=== PATIENT | male | born 1960 | race Caucasian/White ===

== ENCOUNTER 2020-10-16 08:34 | Outpatient (CLI) | payer OTHER, SELFPAY ==
--- NOTE | 2020-10-16 08:42 | ECG_ITS ---
Measurements Intervals [place] Rate: 58 P: 20 [place]: 201 QRS: -35 QRSD: 122 T: -4 QT: 439 QTc: 434 Interpretive Statements SINUS BRADYCARDIA LEFT AXIS DEVIATION BORDERLINE AV CONDUCTION DELAY INTRAVENTRICULAR CONDUCTION DELAY DELAYED PRECORDIAL R/S TRANSITION VOLTAGE CRITERIA FOR LVH BORDERLINE T WAVE ABNORMALITY- ANTERIOR LEADS BASELINE ARTIFACT- I, II, AVR BORDERLINE ECG Electronically Signed On 10-16-2020 12:54:22 CDT by Gomez Robison D.O.
== END 2020-10-16 08:35 | disposition home or self-care (01) ==
LOC: ANHSURGERY 08:36
PROVIDERS: PCP Family Medicine; Visit Provider Orthopaedic Surgery
DX: Z01.810 Encounter for preprocedural cardiovascular examination (principal); I10 Essential (primary) hypertension
CPT/HCPCS: 93005

== ENCOUNTER 2020-10-21 01:35 | Day surgery (SDC) | payer OTHER, SELFPAY ==
[2020-10-15 15:14] VITALS: BMI 37.6
[2020-10-21] VITALS (8 sets, daily range): BP systolic 124–158; BP diastolic 82–96; PULSE 63–87; RESP 16–18; TEMP 36.1–36.6; O2SAT 92–99
--- NOTE | 2020-10-21 07:16 | WPDHPUPDATE1 ---
History and Physical Update Update Date/Time: 10/21/20 07:16 History and Physical has been reviewed, including an updated exam of the patient. There are NO changes in the patient's condition. Risks, benefits, and alternatives have been discussed and questions answered. Patient agrees to proceed with procedure.
--- NOTE | 2020-10-21 08:18 | WPDANESEPPF ---
Anes - Initial Pre Proc Eval Procedure: Operation Date: 10/21/20 12:30 Proposed Procedures p Right Knee Arthroscopy, Proceed As Indicated - Jorge Hussein MD Date/Time: 10/21/20 08:18 Surgeon: Jorge Hussein MD Pre Op Diagnosis: medial meniscus tear right Patient Data Age: 59 Gender: M Height: 1.8 m Weight: 122.47 kg Allergies Allergy/AdvReac Type Severity Reaction Status Date / Time shellfish derived Allergy Intermediate unknown Verified 10/21/20 10:33 tetracycline Allergy Intermediate Pruritic Verified 10/21/20 10:33 rash house dust Allergy Mild itching Verified 10/21/20 10:33 Home Medications Medication Instructions Recorded Confirmed Type amlodipine 5 mg-benazepril 20 mg 1 cap PO DAILY #90 cap 06/22/20 10/21/20 Rx capsule nebivolol 10 mg tablet 10 mg PO DAILY #90 tablet 06/22/20 10/21/20 Rx ergocalciferol (vitamin D2) 1,250 mcg PO 2XW 10/15/20 10/21/20 History Patient hx anesthesia problems: none Family hx anesthesia problems: none PMFSH Past Medical History Medical History (Updated 10/20/20 @ 12:55 by Jamison Schwarz DO) Benign essential HTN DJD (degenerative joint disease) of knee Normal colonoscopy 02/25/2020 Gary Robledo M.D. PONV (postoperative nausea and vomiting) Right knee pain URI, acute Weight gain Surgical History Surgical History History of nasal surgery History of rotator cuff surgery S/P medial meniscectomy of right knee Family History Family History Father Malignant neoplasm of prostate Hypertension Sibling Family history of multiple sclerosis Hypertension Family history of gastrointestinal disorder Mother Family history of malignant neoplasm of brain Other Brain cancer Social History Social History Smoking status: Never smoker Second hand tobacco smoke exposure: No Alcohol intake: current Drinks per week: 4 Substance use: never Living arrangements: with family Gender identity (if verbalized by the patient): Male Anes - Eval Final PreProcedure Day of Procedure 10/21/20 08:18 Patient weight: obese Heart: regular rate and rhythm Lungs: clear to auscultation and normal air movement Airway: Mallampati scale class III Neurological: alert and oriented Last oral intake: >/= 8 hours ASA classification: III Emergent: no Anesthetic plan: proceed Anesthesia type and monitoring: general LMA and standard monitoring Informed Consent: The patient's anesthetic plan and its attendant risks and benefits were discussed with the patient/family/POA. Questions were solicited and answers provided to the satisfaction of the patient/family/POA.
[2020-10-21] MEDS: ACETAMINOPHEN 500 MG TABLET 1000 MG PO (11:03)
[2020-10-21] MEDS: LACTATED RINGERS 1,000 ML 30 ML IV CONT ×2 (11:03→13:35)
[2020-10-21] MEDS: CELECOXIB 200 MG CAPSULE PO (11:03)
--- NOTE | 2020-10-21 11:24 | SUR.PREOP ---
patient states they have used crutches before and denies need for further teaching. quickly reviewed crutch training instructions and attached materials to discharge.
[2020-10-21] MEDS: FAMOTIDINE 20 MG/2 ML VIAL IV PUSH (12:10)
[2020-10-21] MEDS: SCOPOLAMINE 1.5 MG PATCH TRANSDERM (12:11)
[2020-10-21] MEDS: ceFAZolin 3 GM/D5W 100 ML 100 ML IVPB (12:27)
[2020-10-21] MEDS: BUPIVACAINE HCL 0.5% PF 30 ML VIAL INFILTRATE (13:09)
--- NOTE | 2020-10-21 13:35 | W.PM.PROC2 ---
Procedure Note - Detailed Date of Procedure 10/21/20 Pre-op Diagnosis medial meniscus tear right Post-op Diagnosis same Procedure Performed RIGHT KNEE SCOPE Surgeon Jorge Hussein MD Anesthesia general Description of Procedure PATIENT WAS TAKEN TO THE OR. RIGHT LEG WAS PREPPED AND DRAPED STERILE. TROCARS WERE PLACED IN THE USUAL FASHION. CAMERA WAS INTRODUCED. THERE WAS CHONDROMALACIA TO THE PATELLA FEMORAL JOINT. THERE WAS A LOT OF SYNOVITIS IN ALL COMPARTMENTS. THE MEDIAL COMPARTMENT SHOWED CHONDROMALACIA TO THE MEDIAL FEMORAL CONDYLE. A SHAVER WAS USED TO PREFORM A CHONDROPLASTY. THERE WAS A COMPLEX MEDIAL MENISCUS TEAR. THE TEAR WAS RESECTED WITH A BITER AND A SHAVER DOWN TO A SMOOTH BASE. ABOUT 30% OF THE RECURRENT MENISCUS TEAR WAS REMOVED. THE ACL WAS INTACT. THE LATERAL MENISCUS WAS NOT TORN THE LAT COMPARTMENT HAD GRADE 2 CHONDROMALACIA AT THE LATERAL PLATEAU. CHONDROPLASTY WAS PREFORMED. A SYNOVECTOMY WAS PREFORMED WELL. THE PATELLO FEMORAL JOINT UNDERWENT CHONDROPLASTY. THERE WAS GRADE 2 CHONDROMALACIA IN MOST OF THE TROCHLEA AND PART OF THE PATELLA. SYNOVECTOMY WAS PREFORMED IN THE SUPERIOR MEDIAL COMPARTMENT. THE WOUNDS WERE APPROXIMATED WITH 4.0 NYLON. STERILE DRESSING WAS APPLIED. PATIENT WAS EXTUBATED. Estimated Blood Loss 5 Complications No immediate complications Condition stable Disposition PACU
[2020-10-21] MEDS: fentaNYL CITRATE INJ (*CRX) 100 MCG/2 ML VIAL 25 MCG IV PUSH ×4 (13:59→14:41)
== END 2020-10-21 15:45 | disposition home or self-care (01) ==
PROVIDERS: PCP Family Medicine; Visit Provider Orthopaedic Surgery
PROC: (CPT 29870; principal; 2020-10-21 12:30)
DX: M23.331 Other meniscus derangements, other medial meniscus, right knee (principal); M65.861 Other synovitis and tenosynovitis, right lower leg; M94.261 Chondromalacia, right knee; I10 Essential (primary) hypertension; E66.9 Obesity, unspecified; Z68.37 Body mass index [BMI] 37.0-37.9, adult
CPT/HCPCS: 29881; 93005; A9270; J0690; J1100; J1170; J2250; J2405; J2704; J3010; J7120

== ENCOUNTER 2020-11-18 07:55 | Outpatient (CLI) | payer OTHER, SELFPAY ==
[2020-11-18 09:48] LABS: Hematocrit 45.3 % (42.0-52.0); Hemoglobin 15.1 g/dL (14.0-18.0); Mean Corpuscular HGB Conc 33.3 g/dl (32-36); Mean Corpuscular Hemoglobin 31.1 pg (26-34); Mean Corpuscular Volume 93.4 fl (80-100); Mean Platelet Volume 11.5 fl (7.4-10.4); Platelet Count Result 179 k/mm3 (150-375); Red Blood Count 4.85 M/mm3 (4.6-6.20); Red Cell Distribution Width 12.1 % (11.5-14.5); White Blood Count 6.3 K/mm3 (4.5-10.0)
[2020-11-18 09:50] LABS: Add Urine Microscopic? NO; Appearance Urine Clear (Clear); Bilirubin Urine Negative (Negative); Blood Urine Negative (Negative); Color Urine Yellow (Yellow); Glucose Urine UA Negative (Negative); Ketones Urine Negative (Negative); Leukocyte Esterase Ur Negative LEU/UL (Negative); Nitrate Urine Negative (Negative); Protein Urine Negative (Negative); Specific Grav Ur 1.016 (1.001-1.035); Urobilinogen Urine Negative mg/dL (<2.0)
[2020-11-18 09:52] LABS: INR 0.9
[2020-11-18 09:53] LABS: Partial Thromboplastin Time 28.6 SECONDS (22.3-36.8)
[2020-11-18 09:57] LABS: Albumin Level 4.4 g/dL (3.5-5.1); Anion Gap 7 mmol/L (8-16); Blood Urea Nitrogen 13 mg/dL (9-20); Calcium 9.3 mg/dL (8.4-10.2); Carbon Dioxide 32 mmol/L (22-30); Chloride 102 mmol/L (98-107); Estimated Glomerular Filt Rate > 60; Glucose 104 mg/dL (65-110); Potassium 3.5 mmol/L (3.4-5.0); Sodium 141 mmol/L (137-145)
[2020-11-18 09:59] LABS: Hemoglobin A1C 5.3 % (<5.7)
[2020-11-18 10:06] LABS: Urine Cotinine NEGATIVE
== END 2020-11-18 07:56 | disposition home or self-care (01) ==
LOC: ANHSURGERY 07:55
PROVIDERS: PCP Family Medicine; Visit Provider Orthopaedic Surgery
DX: M17.12 Unilateral primary osteoarthritis, left knee (principal); Z01.818 Encounter for other preprocedural examination
CPT/HCPCS: 80048; 80307; 81003; 82040; 83036; 85027; 85610; 85730; 87081

== ENCOUNTER 2020-12-09 01:23 | Day surgery (SDC) | payer OTHER, SELFPAY ==
[2020-11-18 08:09] VITALS: BP 140/91; PULSE 56; RESP 18; TEMP 36.8; O2SAT 97; BMI 38.8
[2020-12-09] VITALS (17 sets, daily range): BP systolic 124–169; BP diastolic 69–91; PULSE 57–75; RESP 12–18; TEMP 36.1–36.6; O2SAT 91–100; BMI 38.7
--- NOTE | ~2020-12-09 | XR_ITS ---
EXAMINATION: XR knee LT 2V DATE: 12/09/2020 14:16 INDICATION: Left knee arthroplasty. Postop. TECHNIQUE: 2 views of left knee were obtained. COMPARISON: Left knee radiographs 11/30/2020 FINDINGS: There is a total left knee arthroplasty in near-anatomic alignment without patellar resurfa cing. No fracture. There is gas in the knee joint and soft tissues, consistent with recent surgery. A nterior skin arpita are noted. IMPRESSION: 1. Total left knee arthroplasty in near-anatomic alignment. Reviewed, dictated and finalized at location A.
--- NOTE | 2020-12-09 07:19 | WPDHPUPDATE1 ---
History and Physical Update Update Date/Time: 12/09/20 07:19 History and Physical has been reviewed, including an updated exam of the patient. There are NO changes in the patient's condition. Risks, benefits, and alternatives have been discussed and questions answered. Patient agrees to proceed with procedure.
[2020-12-09] MEDS: ACETAMINOPHEN 500 MG TABLET 1000 MG PO (09:19)
[2020-12-09] MEDS: LACTATED RINGERS 1,000 ML 30 ML IV CONT ×2 (09:37→14:05)
[2020-12-09] MEDS: TRANEXAMIC ACID 1,000MG/ISO100 1,000 MG/100 ML BAG 200 MG IVPB (09:38)
--- NOTE | 2020-12-09 10:28 | WPDANESEPPF ---
Anes - Initial Pre Proc Eval Procedure: Operation Date: 12/09/20 11:00 Proposed Procedures p Left Total Knee Arthroplasty - Jorge Hussein MD Date/Time: 12/09/20 10:28 Surgeon: Jorge Hussein MD Pre Op Diagnosis: Left knee djd Patient Data Age: 60 Gender: M Height: 1.78 m Weight: 122.5 kg Last Vital Signs Temp 36.6 C 12/09/20 08:58 Pulse 57 L 12/09/20 08:58 Resp 18 12/09/20 08:58 BP 142/82 H 12/09/20 08:58 Pulse Ox 98 12/09/20 08:58 Allergies Allergy/AdvReac Type Severity Reaction Status Date / Time tetracycline Allergy Intermediate Pruritic Verified 12/09/20 09:04 rash house dust Allergy Mild itching Verified 12/09/20 09:04 Home Medications Medication Instructions Recorded Confirmed Type ergocalciferol (vitamin D2) 1,250 mcg PO 2XW 10/15/20 12/09/20 History Bystolic 10 mg PO HS 11/18/20 12/09/20 History amlodipine-benazepril 1 cap PO HS 11/18/20 12/09/20 History ascorbic acid (vitamin C) 500 mg PO DAILY 11/18/20 12/09/20 History cyanocobalamin (vitamin B-12) 500 mcg PO DAILY 11/18/20 12/09/20 History celecoxib 200 mg capsule 200 mg PO BID #30 cap 12/08/20 12/09/20 Rx diazepam 5 mg tablet 5 mg PO BID PRN #30 tablet 12/08/20 12/09/20 Rx oxycodone-acetaminophen 7.5 mg-325 1 - 2 tablet PO Q6H PRN #60 tablet 12/08/20 Rx mg tablet Patient hx anesthesia problems: none Family hx anesthesia problems: none PMFSH Past Medical History Medical History Benign essential HTN DJD (degenerative joint disease) of knee Normal colonoscopy 02/25/2020 Gary Robledo M.D. PONV (postoperative nausea and vomiting) Right knee pain URI, acute Weight gain Surgical History Surgical History History of nasal surgery History of rotator cuff surgery S/P medial meniscectomy of right knee Family History Family History Father Malignant neoplasm of prostate Hypertension Sibling Family history of multiple sclerosis Hypertension Family history of gastrointestinal disorder Mother Family history of malignant neoplasm of brain Other Brain cancer Social History Social History Second hand tobacco smoke exposure: No Alcohol intake: current Drinks per week: 4 Substance use: never Living arrangements: with family Gender identity (if verbalized by the patient): Male Spiritual care concerns: No Anes - Eval Final PreProcedure Day of Procedure 12/09/20 10:28 Patient weight: obese Heart: regular rate and rhythm Lungs: clear to auscultation and normal air movement Airway: Mallampati scale class III Neurological: alert and oriented Last oral intake: >/= 8 hours ASA classification: III Emergent: no Anesthetic plan: proceed Anesthesia type and monitoring: general LMA and standard monitoring Informed Consent: The patient's anesthetic plan and its attendant risks and benefits were discussed with the patient/family/POA. Questions were solicited and answers provided to the satisfaction of the patient/family/POA.
[2020-12-09] MEDS: FAMOTIDINE 20 MG/2 ML VIAL IV PUSH (10:30)
[2020-12-09] MEDS: SCOPOLAMINE 1.5 MG PATCH TRANSDERM (10:30)
--- NOTE | 2020-12-09 11:19 | WPDANESPNB ---
Anes - Peripheral Nerve Block Date/Time: 12/09/20 11:19 I have discussed with the patient/family/POA the placement of a peripheral nerve block for post-operative pain management, including associated risks, benefits, complications, and side effects. Alternative methods of post-operative analgesia were detailed. Questions were solicited and answers provided to the satisfaction of the patient/family/POA. Time-Out: A pre-procedural Time-Out was completed immediately before starting the procedure and confirmed: Patient Identification, Site, Procedure, Patient Position and the Availability of Requisite Equipment. Clinical Indications: Acute post-operative pain management requested by the operative surgeon. Nerve Block Insertion Note Anes-nerve block: adductor canal left Patient position: supine Skin prep: chlorhexidine Needle: 22 gauge, stimulating, insulated echogenic needle. Needle length: 80 mm Technique: ultrasound Injectate: bupivacaine 0.5% with epi 5 mcg/ml (30cc - no epi) Observations: tolerated well Complications: none Procedure start time:: 1113 Procedure end time:: 111
[2020-12-09] MEDS: ceFAZolin 3 GM/D5W 100 ML 100 ML IVPB (11:41)
[2020-12-09] MEDS: TRANEXAMIC ACID 1,000 MG/10 ML AMPUL 30 MG IV PUSH (13:12)
[2020-12-09] MEDS: BUPIVACAINE HCL 0.5% PF 30 ML VIAL 5 ML INFILTRATE (13:33)
[2020-12-09] MEDS: methylPREDNISolone ACETATE 80 MG/ML VIAL IM (13:33)
[2020-12-09] MEDS: fentaNYL CITRATE INJ (*CRX) 100 MCG/2 ML VIAL 25 MCG IV PUSH ×7 (14:20→15:18)
--- NOTE | 2020-12-09 14:42 | W.PM.PROC2 ---
Procedure Note - Detailed Date of Procedure 12/09/20 Pre-op Diagnosis Left knee djd Post-op Diagnosis same Procedure Performed L TKA Surgeon Jorge Hussein MD Anesthesia general Description of Procedure THE LEFT KNEE WAS PREPPED AND DRAPED IN THE STERILE FASHION. A MIDLINE SKIN INCISION WAS MADE. A MEDIAL PARAPATELLAR ARTHROTOMY WAS MADE. THE PATELLA WAS EVERTED. THERE WAS TRICOMPARTMENT DJD. THERE WAS MINIMAL PATELLA DJD. AN INTRAMEDULLARY AMY WAS PLACED IN THE FEMUR. A DISTAL FEMORAL CUT WAS MADE IN 5 DEGREES OF VALGUS REMOVING APPROXIMATELY 9 MM OF BONE FROM THE DISTAL FEMUR. THE FEMUR WAS SIZED TO 70. A 70 FEMORAL CUTTING BLOCK WAS PLACED IN 3 DEGREES OF EXTERNAL ROTATION AND IN ALIGNMENT WITH SIERRA'S LINE AND THE TRANSEPICONDYLAR AXIS. ANTERIOR POSTERIOR AND CHAMFER CUTS WERE MADE. THE CUTS WERE EXCELLENT. NEXT AN INTRAMEDULLARY CUTTING GUIDE WAS PLACED IN THE TIBIA. A TRANS TIBIAL CUT WAS MADE ALONG THE LONG AXIS OF THE TIBIA. APPROXIMATELY 10 MM OF BONE WAS REMOVED FROM THE HIGH SIDE OF THE TIBIA. THE TIBIA WAS THEN PLANED TO A SMOOTH SURFACE. POSTERIOR FEMORAL OSTEOPHYTES WERE REMOVED FROM THE FEMORAL CONDYLES. A 83 TIBIAL TRIAL WAS PLACED IN ALIGNMENT WITH THE 1/3 MEDIAL ASPECT OF THE TIBIAL TUBERCLE. THEN A 70 FEMORAL TRIAL COMPONENT WAS PLACED. BOTH HAD EXCELLENT FITS. EVENTUALLY A 12 MM CR POLYETHYLENE TRIAL COMPONENT WAS PLACED. THE KNEE WAS TAKEN THROUGH A RANGE OF MOTION. THE KNEE CAME OUT TO FULL EXTENSION. THERE WAS NO ABNORMAL TILT TO THE PATELLA. THERE WAS GOOD A/P AND VARUS/VALGUS STABILITY. THERE WAS NO EXCESSIVE ROLL BACK WITH FLEXION. THE TRIAL COMPONENTS WERE REMOVED. THEN A 70 FEMORAL COMPONENT AND 83 TIBIAL COMPONENT WITH A 12 CR POLYETHYLENE COMPONENT WERE PRESS FIT INTO PLACE. THE KNEE WAS TAKEN THROUGH A ROM AGAIN AND FOUND TO BE STABLE WITH NO PATELLA TILT NO EXCESSIVE ROLL BACK WITH FLEXION AND GOOD STABILITY WITH COMPLETE AND FULL EXTENSION. THE KNEE WAS IRRIGATED WITH STERILE BETADINE AND WATER FOR ABOUT 3 MINUTES. THE BLEEDERS WERE CAUTERIZED. THE ARTHROTOMY WAS REPAIRED WITH NUMBER 1 VICRYL. THE SUB CUTANEOUS LAYER WITH 2-0 VICRYL AND THE SKIN WITH UDAY. THE WOUND WAS WASHED AND A STERILE DRESSING WAS APPLIED. PATIENT WAS EXTUBATED. Estimated Blood Loss -150.0 Pathology none sent Complications No immediate complications Condition stable Disposition PACU
[2020-12-09] MEDS: oxyCODONE HCL (*CRX) 5 MG TAB IR PO (17:13)
--- NOTE | 2020-12-09 17:26 | SUR.PHASEII ---
Physical therapy in room seeing patient now.
[2020-12-09] MEDS: ONDANSETRON INJ 4 MG/2 ML VIAL IV PUSH (17:36)
== END 2020-12-09 18:55 | disposition home or self-care (01) ==
PROVIDERS: PCP Family Medicine; Visit Provider Orthopaedic Surgery
PROC: (CPT 27447; principal; 2020-12-09 11:00)
DX: M17.12 Unilateral primary osteoarthritis, left knee (principal); G89.18 Other acute postprocedural pain; I10 Essential (primary) hypertension; E66.9 Obesity, unspecified; Z68.38 Body mass index [BMI] 38.0-38.9, adult; Z88.1 Allergy status to other antibiotic agents; Z79.899 Other long term (current) drug therapy
CPT/HCPCS: 27447; 64447; 36415; 73560; 80048; 80307; 81003; 82040; 83036; 85027; 85610; 85730; 86850; 86900; 86901; 87081; 97161; A9270; C1713; C1776; J0131; J0171; J0690; J1040; J1100; J1170; J1885; J2250; J2270; J2405; J2704; J2795; J3010; J7120

== ENCOUNTER 2024-05-14 12:35 | Outpatient (CLI) | payer OTHER, SELFPAY ==
--- NOTE | ~2024-05-14 | MR_ITS ---
MRI of the lumbar spine Clinical History: Pain Technique: Axial T2-weighted images, and sagittal T1-weighted, T2-weighted, and too fat-sat images we re acquired. Findings: There is no fracture or subluxation of the lumbar spine. Vertebral bodies maintain normal h eight and alignment. No suspicious bone marrow signal abnormality seen. At L1-L2, L2-L3, L3-L4, there is no significant disc bulge or herniation. There is mild to moderate f acet hypertrophy at these levels. No spinal canal stenosis or neural foraminal narrowing at these lev els. At L4-L5, there is mild disc desiccation and narrowing, with minimal disc bulge. There is moderate fa cet arthropathy. No central canal stenosis. There is minimal bilateral neural foraminal narrowing. At L5-S1, there is mild disc desiccation. No disc bulge or herniation. There is mild facet arthropath y. No central canal stenosis or neural foraminal narrowing. Paravertebral soft tissues are unremarkable. Impression: Mild degenerative spondylosis overall, as above. Reviewed, dictated and finalized at location . T LITERACY INSTRUCTOR Impression: Mild degenerative spondylosis overall, as above.
--- NOTE | ~2024-05-14 | MR_ITS ---
EXAMINATION: MR thoracic spine wo con DATE: 05/14/2024 13:13 INDICATION: Mid back pain TECHNIQUE: Magnetic resonance imaging (MRI) of the thoracic spine was performed without intravenous c ontrast. Sagittal localizer T1-weighted FSE of the cervicothoracic spine was obtained. Thoracic spine sequences included sagittal T2-weighted FSE, sagittal T1-weighted SE, Sagittal T2-weighted FS FSE, a nd axial T2-weighted FSE. COMPARISON: None FINDINGS: Alignment is normal.Mild likely physiologic anterior wedging at T11 and T12. Remaining vertebral body heights are normal. There is diffuse decreased T1 and increased T2 signal throughout the [id number] body. There is fibrofatty and fibrovascular degenerative endplate change at the anterior inferior en dplate of L1. Marrow signal is otherwise normal. Mild disc desiccation and minimal to mild disc heigh t loss at several levels in the mid to lower thoracic spine. The discs do not extend beyond the endpl ate with no central canal stenosis. There is multilevel mild bilateral thoracic facet osteoarthritis with multilevel minimal to mild neural foraminal stenosis at several levels most prominent on the rig ht at T8-T9. There is normal spinal cord signal. The conus terminates at L1. Paravertebral soft tissu es are unremarkable. IMPRESSION: 1. Diffuse decreased T1 and increased T2 signal at the T6 vertebral body which raises concern for mal ignancy or metastatic disease. Consider further evaluation with bone scan and chest CT.. 2. Minimal to mild thoracic spondylosis. Reviewed, dictated and finalized at location A. STERED NURSE MATERNAL CHILD IMPRESSION: 1. Diffuse decreased T1 and increased T2 signal at the T6 vertebral body which raises concern for malignancy or metastatic disease. Consider further evaluatio n with bone scan and chest CT.. 2. Minimal to mild thoracic spondylosis.
== END 2024-05-14 12:36 | disposition home or self-care (01) ==
PROVIDERS: PCP Family Medicine; Visit Provider Family Medicine
DX: M47.896 Other spondylosis, lumbar region (principal); M47.894 Other spondylosis, thoracic region
CPT/HCPCS: 72146; 72148

== ENCOUNTER 2025-02-05 09:29 | Outpatient (CLI) | payer OTHER, SELFPAY ==
--- NOTE | ~2025-02-05 | XR_ITS ---
EXAMINATION: SCOLIOSIS DATE: 02/06/2025 7:56 CDT INDICATION: Degenerative disc disease TECHNIQUE: Standing AP and lateral views of the thoracolumbar spine FINDINGS: There are 12 rib bearing thoracic vertebral bodies and 5 non-rib bearing lumbar type vertebral bodies. There is no listhesis, compression deformity or vertebral body anomalies. There is mild levoscoliosis of the thoracic spine measuring approximately 7 degrees. There are scattered calcified granulomas of the lungs and spleen. Nonobstructive bowel gas pattern. Accentuated kyphosis at the thoracolumbar junction. Mild multilevel thoracic and lumbar spondylosis. No fracture or traumatic malalignment. IMPRESSION: 1. Mild levoscoliosis of the thoracic spine. 2. Mild thoracic and lumbar spondylosis. Reviewed, dictated and finalized at location O.
--- NOTE | ~2025-02-05 | XR_ITS ---
XR lumbar spine min 4V Indication: M51.369 - Other intervertebral disc degeneration, lumbar ... Comparison: None Findings: No fracture, no subluxation with flexion-extension. Moderate loss of disc at L4-5 and L5-S1. Soft tissues unremarkable Impression: No acute abnormality. Reviewed, dictated and finalized at location P. Impression: No acute abnormality.
== END 2025-02-05 09:30 | disposition home or self-care (01) ==
PROVIDERS: PCP Family Medicine; Visit Provider Neurological Surgery
DX: M51.369 Other intervertebral disc degeneration, lumbar region without mention of lumbar back pain or lower extremity pain (principal); Z98.1 Arthrodesis status; M47.896 Other spondylosis, lumbar region; M47.894 Other spondylosis, thoracic region
CPT/HCPCS: 72082; 72110

== ENCOUNTER 2025-03-10 14:18 | Outpatient (CLI) | payer OTHER, SELFPAY ==
--- NOTE | ~2025-03-10 | MR_ITS ---
EXAMINATION: MR lumbar spine wo con DATE: 03/10/2025 15:10 INDICATION: Low back pain TECHNIQUE: Magnetic resonance imaging (MRI) of the lumbar spine was performed without intravenous contrast. Sequences included sagittal T2-weighted FSE, sagittal T2-weighted FS FSE, sagittal T1-weighted FSE, and axial T2-weighted FSE. COMPARISON: Lumbar spine radiographs dated 02/05/2025 and MRI dated FINDINGS: Dimension 3 mm retrolisthesis L4 on L5 and L5 on S1. Vertebral body heights are normal. No significant change in small regions of T1 hyperintense fibrofatty degenerative endplate changes at the anterior inferior endplate of L1 and L2 superior endplate of L3. Marrow signal is otherwise unremarkable. Mild disc height loss with annular fissures at L4-L5 and L5-S1. The conus medullaris terminates at T12-L1. There is normal signal in the caudal spinal cord. Paravertebral soft tissues are unremarkable. The following disc levels are specifically discussed: T12-L1: The disc does not extend beyond the endplate margin. There is mild bilateral facet joint osteoarthritis. There is no neural foraminal stenosis. There is no central canal stenosis. L1-L2: The disc does not extend beyond the endplate margin. There is mild bilateral facet joint osteoarthritis. There is no neural foraminal stenosis. There is no central canal stenosis. L2-L3: The disc does not extend beyond the endplate margin. There is mild bilateral facet joint osteoarthritis. There is minimal bilateral neural foraminal stenosis. There is no central canal stenosis. L3-L4: The disc does not extend beyond the endplate margin. There is mild bilateral facet joint osteoarthritis. There is mild bilateral neural foraminal stenosis. There is no central canal stenosis. L4-L5: Disc is mildly bulging with annular fissure. There is mild bilateral facet joint osteoarthritis. There is mild to moderate bilateral neural foraminal stenosis. There is no central canal stenosis. L5-S1: Disc is mildly bulging with annular fissure. There is mild bilateral facet joint osteoarthritis. There is minimal bilateral neural foraminal stenosis. There is no central canal stenosis. IMPRESSION: 1. Slight progression in still mild lumbar spondylosis. Reviewed, dictated and finalized at location A. S SUPPORT ASSOCIATE
--- NOTE | ~2025-03-10 | MR_ITS ---
EXAMINATION: MR thoracic spine wo con DATE: 03/10/2025 14:56 INDICATION: Back pain. No history of trauma. Previous finding of diffuse decreased T1 and increased T2 signal of T6 vertebral body on MRI examination of 05/06/2024. No prior history of malignancy. TECHNIQUE: Magnetic resonance imaging (MRI) of the thoracic spine was performed without intravenous contrast. Sagittal localizer T1-weighted FSE of the cervical spine was obtained. Thoracic spine sequences included sagittal T2-weighted FSE, sagittal T1-weighted FSE, sagittal T2-weighted FS FSE, and axial T2-weighted FSE. COMPARISON: MRI dated 05/14/2024. FINDINGS: Abnormality of T6 vertebral body with decreased T1 signal and increased T2 signal are stable compared with previous MRI 05/14/2024. No new or additional lesions are thoracic vertebrae. No evidence of thoracic disc herniation or spinal stenosis. No foraminal stenosis. No focal lesions of the thoracic spinal cord. Paravertebral soft tissues are unremarkable. IMPRESSION: 1. Stable solitary lesion of T6 thoracic vertebral body compared with 05/14/2024 with decreased T1 signal, increased T2 signal. Probable benign hemangioma T6 thoracic vertebra. Continued follow-up with annual CT or MRI is recommended. 2. No evidence of thoracic disc herniation or spinal stenosis. No focal lesions of thoracic spinal cord. Reviewed, dictated and finalized at location T. NG SPECIALIST IMPRESSION: 1. Stable solitary lesion of T6 thoracic vertebral body compared with 05/14/2024 with decreased T1 signal, increased T2 signal. Probable benign hemangioma T6 t horacic vertebra. Continued follow-up with annual CT or MRI is recommended. 2. No evidence of thoracic disc herniation or spinal stenosis. No focal lesions of thoracic spinal cord.
== END 2025-03-10 14:19 | disposition home or self-care (01) ==
LOC: MICIMG 14:19
PROVIDERS: PCP Family Medicine; Visit Provider Neurological Surgery
DX: M47.896 Other spondylosis, lumbar region (principal)
CPT/HCPCS: 72146; 72148